=== PATIENT | male | born 1980 | race Two or more races ===

== ENCOUNTER 2016-09-27 13:18 | Emergency (ER) | payer SELFPAY ==
[2016-09-27 13:23] VITALS: BP 117/69
[2016-09-27] MEDS ORDERED: PREDNISONE 20 MG TABLET PO ONE (13:50)
[2016-09-27] MEDS ORDERED: KETOROLAC TROMETHAMINE INJ/PF 30 MG/1 ML SDV IV ONE (13:50)
--- NOTE | 2016-09-27 14:05 | ER Document Report ---
ED Skin Rash/Insect Bite/Abscs - General Chief Complaint: Rash Stated Complaint: RASH Notes: patient is a 36 year old male who was cleaning his yard over the weekend and broke out in a rash on friday/friday. states he has been taking benadryl, and using calamine lotion. admits to itching. no feers, chills TRAVEL OUTSIDE OF THE [place] IN LAST 30 DAYS: No - Related Data Allergies/Adverse Reactions: No Known Allergies Allergy (Unverified 09/27/16 13:22) Past Medical History - Social History Smoking Status: Unknown if Ever Smoked Family History: Reviewed & Not Pertinent Patient has suicidal ideation: No Patient has homicidal ideation: No Renal/ Medical History: Denies: Hx Peritoneal Dialysis Review of Systems - Review of Systems Constitutional: No symptoms reported Skin: See HPI -: Yes All other systems reviewed and negative Physical Exam - Vital signs Vitals: Temp Pulse Resp BP Pulse Ox 98.5 F 78 20 117/69 97 09/27/16 13:23 09/27/16 13:23 09/27/16 13:23 09/27/16 13:23 09/27/16 13:23 - General General appearance: Appears well, Alert In distress: None - HEENT Head: Normocephalic, Atraumatic Eyes: Normal Conjunctiva: Normal Cornea: Normal Extraocular movements intact: Yes Eyelashes: Normal Pupils: PERRL Ears: Normal External canal: Normal Tympanic membrane: Normal Sinus: Normal Nasal: Normal Mucous membranes: Normal - Respiratory Respiratory status: No respiratory distress Chest status: Nontender Breath sounds: Normal Chest palpation: Normal - Cardiovascular Rhythm: Regular Heart sounds: Normal auscultation, S1 appreciated, S2 appreciated Pulses: Normal: Radial, Dorsalis pedis Normal capillary refill: Yes - Extremities General upper extremity: Nontender, Normal color, Normal ROM, Normal strength, Normal temperature. No: Edema General lower extremity: Nontender, Normal color, Normal ROM, Normal strength, Normal temperature, Normal weight bearing. No: Edema - Neurological Neuro grossly intact: Yes Cognition: Normal Orientation: AAOx4 Brendan Coma Scale Eye Opening: Spontaneous [place] Coma Scale Verbal: Oriented [place] Coma Scale Motor: Obeys Commands [place] Coma Scale Total: 15 - Skin Skin Temperature: Warm Skin Moisture: Dry Skin Color: Normal Skin Turgor: Elastic Skin irregularity: Rash Location of irregularity: Generalized Character of irregularity: Symmetric, Maculopapular, Bullous, Erythematous Course - Re-evaluation Re-evalutation: 09/27/16 14:10 36-year-old male who is hemodynamic stable, no distress and afebrile. Presentation is consistent with allergic contact dermatitis secondary to plant exposure. Patient will be discharged home with steroid and follow-up with primary care next week. Patient understands and is agreeable with plan. - Vital Signs Vital signs: Temp Pulse Resp BP Pulse Ox 98.5 F 78 20 117/69 97 09/27/16 13:23 09/27/16 13:23 09/27/16 13:30 09/27/16 13:23 09/27/16 13:23 Discharge - Discharge Clinical Impression: Allergic contact dermatitis due to plant Condition: Good Disposition: HOME, SELF-CARE Instructions: Contact Dermatitis ([facility]), Poison [place] ([facility]), Antihistamines ([facility]) Additional Instructions: Continue to use calamine [id number] and a hydrocortisone cream Keep your wounds clean and dry Prescriptions: Methylprednisolone [Medrol Dosepack (4 mg/Tab) 21 Tab/Dosepak] 4 mg PO ASDIR PRN #21 [email or web address] PRN Reason: Forms: Return to Work Referrals: [facility] [NO [facility]AL MD] - Follow up as needed
== END 2016-09-27 14:29 | disposition home or self-care (01) ==
LOC: ER 13:18
DX: L23.7 Allergic contact dermatitis due to plants, except food (principal)
CPT/HCPCS: 99282; 96374; J1885; J7512